=== PATIENT | female | born 1955 | race Caucasian/White ===

== ENCOUNTER 2021-05-14 23:45 | Emergency (ER) | payer BC ==
[~2021-05-14] VITALS: Ht 165.1 cm; Wt 85.7 kg
[2021-05-14 23:49] VITALS: BP 124/90
--- NOTE | 2021-05-14 23:52 | NUR ---
TO LOBBY A/W BED AMBULATORY
--- NOTE | 2021-05-15 00:11 | NUR ---
PT AMBULATED TO CHAIR C
--- NOTE | 2021-05-15 00:26 | NUR ---
Dr. Swanson examining patient.
[2021-05-15] MEDS ORDERED: ONDANSETRON 4 MG ODT PO ONE (00:55)
[2021-05-15] MEDS ORDERED: IBUPROFEN 600 MG TAB PO ONE (00:55)
[2021-05-15] MEDS ORDERED: IBUP-2213 PO (00:57)
[2021-05-15] MEDS ORDERED: ONDA-24 PO (00:57)
[2021-05-15 01:13] VITALS: BP 124/90
--- NOTE | 2021-05-15 01:14 | NUR ---
Patient discharged with v/s stable. Written and verbal after care instructions given and explained. Patient verbalized understanding. Ambulatory with steady gait. All questions addressed prior to discharge. Advised to follow up with PMD.
== END 2021-05-15 01:14 | disposition home or self-care (01) ==
LOC: MED 23:45
DX: S40.022A Contusion of left upper arm, initial encounter (principal); R11.10 Vomiting, unspecified; Z79.899 Other long term (current) drug therapy; W19.XXXA Unspecified fall, initial encounter; Y93.89 Activity, other specified; Y92.89 Other specified places as the place of occurrence of the external cause; Y99.8 Other external cause status
CPT/HCPCS: 73060; 99283; Q0162